=== PATIENT | male | born 1930 | race Caucasian/White ===

== ENCOUNTER → 2016-09-19 12:04 | Day surgery (SDC) | payer MEDICARE, BC ==
[~2016-09-19 12:04] MED LIST: Acetaminophen TAB* 325 MG PO PRN; Albuterol 2.5 MG/3 ML NEB.SOL* (0.083%) ONE; Buffered Lidocaine 1% SYRIN* 3 ML/SYR SYRINGE INTRADERM ONE; Cyclopentolate 1% OPTH.SOL* 2 ML BTL ONE; Flurbiprofen 0.03% OPTH.SOL* 2.5 ML BTL ONE; Lidocaine 1% MPF* 2 ML VIAL ONE; Lidocaine 2% EPI 1:200000 MPF* 20 ML VIAL ONE; Midazolam* 1 MG/ML 2 ML VIAL (2 MG) ONE; Neomycin/Polymy/Dex OPTH.SUSP* MAXITROL 0.1% 5 ML ONE; Phenylephrine 2.5% OPTH.SOL* 2 ML BTL ONE; Povidone Iodine 5% OPTH* 30 ML BTL ONE; Proparacaine 0.5% OPHTH.SOL* 15 ML BTL ONE; acetaZOLAMIDE TAB* 250 MG ONE
[2016-09-19 14:37] VITALS: BP 106/62
--- NOTE | 2016-09-19 16:27 | OP ---
DATE OF OPERATION: 09/19/2016 - [facility] DATE OF : 1930. SURGEON: Ji Ty M.D. PREOPERATIVE DIAGNOSIS: Cataract left eye. POSTOPERATIVE DIAGNOSIS: Cataract left eye. OPERATIVE PROCEDURE: Phacoemulsification left eye with IOL. DESCRIPTION OF PROCEDURE: The patient was brought to the operating room after being given 1/2% Alcaine with epinephrine drops in the preoperative area. The eye was prepped and draped in the usual sterile fashion. Sterile drape and eyelid speculum were placed. Again, topical 1/2% Alcaine with epinephrine was given. A paracentesis incision was made at the 3 o'clock position with the No.75 blade. Clear cornea incision 2.2 x 2.2-mm was created at the 6 o'clock position starting at the anterior limbus using the 2.2-mm keratome. The anterior chamber was irrigated with 0.4 mL of 1% non-preservative intracameral lidocaine and filled with DisCoVisc. A capsulorrhexis was completed using the cystotome and the Utrata forceps. Hydrodissection was performed with balanced salt solution. The lens nucleus was removed with the Phacoemulsification handpiece without incident. Cortex was removed with the irrigation-aspiration handpiece. The capsular bag was re-inflated using DisCoVisc and an [id number] implant was inserted with the shooter. A Malyugin ring was used to dilate the pupil prior to capsulorrhexis and removed after insertion of the lens. The irrigation-aspiration handpiece was used to remove all residual DisCoVisc. The eye was refilled with balanced salt solution and the wound checked and found to be watertight. Topical Maxitrol drops were given. Indication for complex cataract surgery: Iris abnormalities requiring pupil dilation device. [id number]/[facility] #: [id number] [place]
== END | disposition home or self-care (01) ==
LOC: OREAST 12:04
PROVIDERS: ATTEND Specialist
DX: H25.812 Combined forms of age-related cataract, left eye (principal); Q13.2 Other congenital malformations of iris; Z87.891 Personal history of nicotine dependence; J44.9 Chronic obstructive pulmonary disease, unspecified; I10 Essential (primary) hypertension; I48.91 Unspecified atrial fibrillation; G35 Multiple sclerosis; I25.10 Atherosclerotic heart disease of native coronary artery without angina pectoris; Z95.1 Presence of aortocoronary bypass graft
CPT/HCPCS: J2250; V2632

== ENCOUNTER → 2016-09-26 09:21 | Day surgery (SDC) | payer MEDICARE, BC ==
[~2016-09-26 09:21] MED LIST changes: -Albuterol 2.5 MG/3 ML NEB.SOL* (0.083%) ONE
[2016-09-26 13:13] VITALS: BP 114/49
--- NOTE | 2016-09-27 11:37 | OP ---
DATE OF OPERATION: 09/26/16 - [facility] DATE OF : [birth year] SURGEON: Ji Ty M.D. PREOPERATIVE DIAGNOSIS: Cataract, right eye. POSTOPERATIVE DIAGNOSIS: Cataract, right eye. OPERATIVE PROCEDURE: Phacoemulsification, right eye, with IOL. DESCRIPTION OF PROCEDURE: The patient was brought to the operating room after being given 1/2% Alcaine with epinephrine drops in the preoperative area. The eye was prepped and draped in the usual sterile fashion. Sterile drape and eyelid speculum were placed. Again, topical 1/2% Alcaine with epinephrine was given. A paracentesis incision was made at the 9 o'clock position with the No.75 blade. Clear cornea incision 2.2 x 2.2-mm was created at the 12 o'clock position starting at the anterior limbus using the 2.2-mm keratome. The anterior chamber was irrigated with 0.4 mL of 1% non-preservative intracameral lidocaine and filled with DisCoVisc. A capsulorrhexis was completed using the cystotome and the Utrata forceps. Hydrodissection was performed with balanced salt solution. The lens nucleus was removed with the Phacoemulsification handpiece without incident. Cortex was removed with the irrigation-aspiration handpiece. The capsular bag was re-inflated using DisCoVisc and an [id number] implant was inserted with the shooter. The irrigation-aspiration handpiece was used to remove all residual DisCoVisc. The eye was refilled with balanced salt solution and the wound checked and found to be watertight. Topical Maxitrol drops were given. A Malyugin ring was used to dilate the pupil prior to capsulorrhexis. Indication for complex cataract surgery: Iris abnormalities requiring pupil dilation device. [id number]/[facility] #: [id number] [facility]PITALCarl
== END | disposition home or self-care (01) ==
LOC: OREAST 09:21
PROVIDERS: ATTEND Specialist
DX: H25.811 Combined forms of age-related cataract, right eye (principal); Q13.2 Other congenital malformations of iris; Z87.891 Personal history of nicotine dependence; I10 Essential (primary) hypertension; J44.9 Chronic obstructive pulmonary disease, unspecified; I51.7 Cardiomegaly; Z95.1 Presence of aortocoronary bypass graft; N18.9 Chronic kidney disease, unspecified; G89.4 Chronic pain syndrome; Z79.891 Long term (current) use of opiate analgesic
CPT/HCPCS: J2250; V2632

== ENCOUNTER 2017-05-12 08:16 | Emergency (ER) | payer MEDICARE, BC ==
[2017-05-12] MEDS ORDERED: Oxybutynin TAB* 5 MG PO ONE (09:13)
[2017-05-12] MEDS ORDERED: oxyCODONE TAB* 5 MG TAB PO ONE (09:21)
[2017-05-12 09:24] LABS: Hematocrit 32 % (42-52); Hemoglobin 10.6 g/dl (14.0-18.0); Mean Corpuscular HGB Conc 33 g/dl (31-36); Mean Corpuscular Hemoglobin 31 pg (27-31); Mean Corpuscular Volume 94 fL (80-94); Mean Platelet Volume 8 um3 (7.4-10.4); Red Blood Count 3.38 10^6/ul (4.0-5.4); Red Cell Distribution Width 14 % (10.5-15); White Blood Count 8.2 10^3/ul (3.5-10.8)
--- NOTE | 2017-05-12 09:31 | RAD ---
INDICATION: Chest pain COMPARISON: Most recent comparison chest x-rays February 14, 2016 TECHNIQUE: PA and lateral views of the chest were obtained. FINDINGS: Again seen are sternotomy wires and a prostatic valve at the expected location of the aortic valve. Coronary artery stents are noted in the anterior mediastinum perhaps representing stenting of a prior CABG graft. There is mild cardiomegaly similar in appearance to the prior chest x-ray. There is coarse atherosclerotic calcification overlying the arch of the aorta. There is increased patchy density overlying the lateral aspect of the right lung and the mid-level left lung. The pulmonary vasculature is mildly engorged and indistinct relative to the prior chest x-ray. There is costophrenic angle blunting seen on the lateral view chest x-ray. Visualized bones are normal for the patient's age. There is no radiographic evidence of free air beneath the diaphragm IMPRESSION: CHEST X-RAY FINDINGS ARE MOST INDICATIVE OF EXACERBATION OF CONGESTIVE HEART FAILURE WITH WORSENING PULMONARY EDEMA AND SMALL PLEURAL EFFUSIONS.
[2017-05-12 09:40] LABS: Albumin 3.3 g/dL (3.2-5.2); BUN/Creatinine Ratio 38.3 (8-20); C Reactive Protein 5.41 mg/L (< 5.00); Calcium 9.2 mg/dL (8.6-10.3); EGFR African American 84.7 (>60); EGFR Non-African American 65.8 (>60); Globulin 3.7 g/dL (2-4); Magnesium 2.3 mg/dL (1.9-2.7); Potassium 4.1 mmol/L (3.5-5.0); Total Bilirubin 0.5 mg/dL (0.2-1.0)
[2017-05-12 09:41] LABS: Troponin I 0.03 ng/mL (<0.04)
[2017-05-12] MEDS ORDERED: Lidocaine PATCH 5%* 1 PATCH ONE (10:09)
[2017-05-12 10:17] LABS: Urine Bacteria Absent (Absent); Urine Bilirubin Negative (Negative); Urine Glucose Negative (Negative); Urine Nitrite Negative (Negative)
[2017-05-12] MEDS ORDERED: Lidocaine PATCH 5%* 1 PATCH TRANSDERM SCH (11:00)
[2017-05-12 11:03] VITALS: BP 161/70
--- NOTE | 2017-05-12 15:50 | ED ---
Enedina Dixon Abhishek, scribed for Elver Davis MD on 05/12/17 at 0833 . GI/ HPI - HPI Summary HPI Summary: This patient is a 86 year old M BIBA accompanied by female with a chief complaint of hematuria since 0500 today. Patients family member states that patient had right shoulder pain around 0300 today. Patients family reports shoulder pain that has resolved after taking NTG (1) at 0300. Pt uses the following blood thinner(s): Plavix. The patient rates the pain 0/10 in severity. Symptoms aggravated by nothing. Patient reports hip pain. Patient denies abd pain. - History of Current Complaint Chief Complaint: EDGeneral Time Seen by Provider: 05/12/17 08:23 Stated Complaint: BLOOD IN URINE Hx Obtained From: Patient, Family/Indoor Landscaper/Gardener Onset/Duration: Started Hours Ago - 0500, Still Present Current Severity: None Pain Intensity: 0 Associated Signs and Symptoms: Positive: Hematuria, Other: - Hip pain. Negative : Abdominal Pain Aggravating Factor(s): Nothing - Additional Pertinent History Primary Care Physician: [id number] - Allergy/Home Medications Allergies/Adverse Reactions: Allergies Allergy/AdvReac Type Severity Reaction Status Date / Time Propoxyphene [From Darvon] Allergy Severe Difficulty Verified 09/26/16 10:15 Breathing Colchicine Allergy Unknown Unknown Verified 09/26/16 10:15 Reaction Details Levofloxacin [From Levaquin] Allergy Unknown Unknown Verified 09/26/16 10:15 Reaction Details Ramipril Allergy Unknown Unknown Verified 09/26/16 10:15 Reaction Details Chocolate Allergy GI Upset Verified 09/26/16 10:15 Codeine Allergy GI Upset Verified 09/26/16 10:15 PMH/Surg Hx/FS Hx/Imm Hx Endocrine/Hematology History: Reports: Hx Anticoagulant Therapy, Hx Anemia - chronic Denies: Hx Blood Disorders, Hx Blood Transfusions, Hx Bone Marrow Disease, Hx Diabetes, Hx Systemic Lupus Erythematosus, Hx Thyroid Disease, Hx Unexplained Bleeding, Other Endocrine/Hematological Disorders Cardiovascular History: Reports: Hx Aneurysm, Hx Angina, Hx Angioplasty, Hx Cardiac Arrest, Hx Congestive Heart Failure, Hx Coronary Artery Disease - coronary artherosclerosis, Hx Hypercholesterolemia, Hx Hypertension, Hx Valvular Heart Disease - AORTIC STENOSIS Denies: Hx Auto Implanted Cardiovert Defib, Hx Cardiomegaly, Hx Congenital Heart Disease, Hx Deep Vein Thrombosis, Hx Hypotension, Hx Pacemaker/ICD, Hx Peripheral Vascular Disease, Hx Rheumatic Fever, Hx Syncope, Other Cardiovascular Problems/Disorders Respiratory History: Reports: Hx Chronic Bronchitis, Hx Chronic Obstructive Pulmonary Disease (COPD), Hx Pneumonia, Hx Seasonal Allergies, Hx Sleep Apnea - NO LONGER WEARS CPAP, O2 4L routinely, Other Respiratory Problems/Disorders - emphysema Denies: Hx Asthma, Hx Cystic Fibrosis, Hx Lung Cancer, Hx Pleural Effusion, Hx Pulmonary Edema, Hx Pulmonary Embolism GI History: Reports: Other GI Disorders - constipation-takes daily laxative Denies: Hx Cirrhosis, Hx Crohn's Disease, Hx Diverticulosis, Hx Gall Bladder Disease, Hx Gastroesophageal Reflux Disease, Hx Gastrointestinal Bleed, Hx Hiatal Hernia, Hx Irritable Bowel, Hx Jaundice, Hx Obstructive Bowel, Hx Ileostomy, Hx Pyloric Stenosis, Hx Ulcer History: Reports: Hx Kidney Stones, Other Problems/Disorders - BPH - on meds Denies: Hx Acute Renal Failure, Hx Dialysis, Hx Renal Disease Musculoskeletal History: Reports: Hx Arthritis - left hip osteoarthritis, bilat knees, right shoulder, Hx Back Problems, Hx Orthopedic Injury - L hip fx, Other Musculoskeletal History - osteoporosis Denies: Hx Rheumatoid Arthritis, Hx Bursitis, Hx Congenital Bone Abnormalities, Hx Fibromyalgia, Hx Gout, Hx Osteoporosis, Hx Scoliosis, Hx Tendonitis Sensory History: Reports: Hx Cataracts - bilat eyes, Hx Contacts or Glasses, Hx Hearing Aid - bilat, 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 Denies: Other Sensory Impairments Opthamlomology History: Reports: Hx Cataracts - bilat eyes, Hx Contacts or Glasses Denies: Other Sensory Impairments Neurological History: Reports: Other Neuro Impairments/Disorders - MULTIPLE SCLEROSIS Denies: Hx Dementia, Hx Headaches, Hx Seizures Psychiatric History: Reports: Hx Depression Denies: Hx Anxiety, Hx Panic Disorder, Hx Substance Abuse, Other Psychiatric Issues/Disorders - Cancer History Cancer Type, Location and Year: [place] Hx Chemotherapy: No - Surgical History Surgery Procedure, Year, and Place: CABG, cardiac wires in place heart valve january 17 rt hip january 20 2016. RIGHT INGUINAL HERNIA REPAIR. PENILE IMPLANT. LEFT HIP FRACTURE. TURP. 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 CYSTOSCOPY Hx Anesthesia Reactions: No - Immunization History Date of Tetanus Vaccine: ukn Date of Influenza Vaccine: ukn Infectious Disease History: Yes Infectious Disease History: Denies: Hx Hepatitis, Hx Human Immunodeficiency Virus (HIV), Hx Tuberculosis , Traveled Outside the [place] in Last 30 Days - Family History Known Family History: Positive: Cardiac Disease - CAD, Other - CVA - Social History Lives: At [facility] Alcohol Use: None Hx Substance Use: No Substance Use Type: Reports: None Hx Tobacco Use: Yes Smoking Status (MU): Former Smoker Type: Cigarettes Have You Smoked in the Last Year: No Review of Systems Constitutional: Negative Eyes: Negative ENT: Negative Cardiovascular: Negative Respiratory: Negative Negative: Abdominal Pain Positive: hematuria Positive: Other - Hip pain Skin: Negative Neurological: Negative Psychological: Normal All Other Systems Reviewed And Are Negative: Yes Physical Exam - Summary Physical Exam Summary: VITAL SIGNS: Reviewed. GENERAL: ~Patient is a well-developed and nourished (MALE) who is lying comfortable in the stretcher. ~Patient is not in any acute respiratory distress. HEAD AND FACE: No signs of trauma. ~No ecchymosis, hematomas or skull depressions. No sinus tenderness. EYES: PERRLA, EOMI x 2, No injected conjunctiva, no nystagmus. EARS: Hearing grossly intact. Ear canals and tympanic membranes are within normal limits. MOUTH: Oropharynx within normal limits. NECK: Supple, trachea is midline, no adenopathy, no JVD, no carotid bruit, no c- spine tenderness, neck with full ROM. CHEST: Symmetric, no tenderness at palpation LUNGS: lungs with bilateral crackles and gurgling CVS: Regular rate and rhythm, S1 and S2 present, no murmurs or gallops appreciated. ABDOMEN: Soft, non-tender. No signs of distention. No rebound no guarding, and no masses palpated. Bowel sounds are normal. EXTREMITIES: FROM in all major joints, no edema, no cyanosis or clubbing. NEURO: Alert and oriented x 3. No acute neurological deficits. Speech is normal and follows commands. SKIN: Dry and warm Triage Information Reviewed: Yes Vital Signs On Initial Exam: Initial Vitals Temp Pulse Resp BP Pulse Ox 98.3 F 66 14 176/74 96 05/12/17 08:25 05/12/17 08:25 05/12/17 08:25 05/12/17 08:25 05/12/17 08:25 Vital Signs Reviewed: Yes Diagnostics - Vital Signs Vital Signs Temp Pulse Resp BP Pulse Ox 05/12/17 08:25 98.3 F 66 14 176/74 96 - Laboratory Lab Results: Lab Results 05/12/17 05/12/17 05/12/17 Range/Units 09:06 09:06 09:06 WBC 8.2 (3.5-10.8) 10^3/ul RBC 3.38 L (4.0-5.4) 10^6/ul Hgb 10.6 L (14.0-18.0) g/dl Hct 32 L (42-52) % MCV 94 (80-94) fL MCH 31 (27-31) pg MCHC 33 (31-36) g/dl RDW 14 (10.5-15) % Plt Count 258 (150-450) 10^3/ul MPV 8 (7.4-10.4) um3 Neut % (Auto) 59.4 (38-83) % Lymph % (Auto) 25.7 (25-47) % Bowman % (Auto) 11.1 H (1-9) % Eos % (Auto) 3.0 (0-6) % Baso % (Auto) 0.8 (0-2) % Absolute Neuts (auto) 4.9 (1.5-7.7) 10^3/ul Absolute Lymphs (auto) 2.1 (1.0-4.8) 10^3/ul Absolute Monos (auto) 0.9 H (0-0.8) 10^3/ul Absolute Eos (auto) 0.2 (0-0.6) 10^3/ul Absolute Basos (auto) 0.1 (0-0.2) 10^3/ul Absolute Nucleated RBC 0 10^3/ul Nucleated RBC % 0 APTT 35.5 (26.0-36.3) seconds Sodium 136 (133-145) mmol/L Potassium 4.1 (3.5-5.0) mmol/L Chloride 102 (101-111) mmol/L Carbon Dioxide 28 (22-32) mmol/L Anion Gap 6 (2-11) mmol/L BUN 41 H (6-24) mg/dL Creatinine 1.07 (0.67-1.17) mg/dL Est GFR ( Amer) 84.7 (>60) Est GFR (Non-Af Amer) 65.8 (>60) BUN/Creatinine Ratio 38.3 H (8-20) Glucose 102 H (70-100) mg/dL Calcium 9.2 (8.6-10.3) mg/dL Magnesium 2.3 (1.9-2.7) mg/dL Total Bilirubin 0.50 (0.2-1.0) mg/dL AST 17 (13-39) U/L ALT 11 (7-52) U/L Alkaline Phosphatase 74 (34-104) U/L Total Creatine Kinase 41 (10-223) U/L Troponin I 0.03 (<0.04) ng/mL C-Reactive Protein 5.41 H (< 5.00) mg/L B-Natriuretic Peptide ( - 100) pg/mL Total Protein 7.0 (6.4-8.9) g/dL Albumin 3.3 (3.2-5.2) g/dL Globulin 3.7 (2-4) g/dL Albumin/Globulin Ratio 0.9 L (1-3) Amylase 38 (29-103) U/L Lipase 13 (11.0-82.0) U/L Urine Color Urine Appearance Urine pH (5-9) Ur Specific [place] (1.010-1.030) Urine Protein (Negative) Urine Ketones (Negative) Urine Blood (Negative) Urine Nitrate (Negative) Urine Bilirubin (Negative) Urine Urobilinogen (Negative) Ur Leukocyte Esterase (Negative) Urine WBC (Auto) (Absent) Urine RBC (Auto) (Absent) Urine Bacteria (Absent) Urine Glucose (Negative) 05/12/17 05/12/17 Range/Units 09:06 10:03 WBC (3.5-10.8) 10^3/ul RBC (4.0-5.4) 10^6/ul Hgb (14.0-18.0) g/dl Hct (42-52) % MCV (80-94) fL MCH (27-31) pg MCHC (31-36) g/dl RDW (10.5-15) % Plt Count (150-450) 10^3/ul MPV (7.4-10.4) um3 Neut % (Auto) (38-83) % Lymph % (Auto) (25-47) % Bowman % (Auto) (1-9) % Eos % (Auto) (0-6) % Baso % (Auto) (0-2) % Absolute Neuts (auto) (1.5-7.7) 10^3/ul Absolute Lymphs (auto) (1.0-4.8) 10^3/ul Absolute Monos (auto) (0-0.8) 10^3/ul Absolute Eos (auto) (0-0.6) 10^3/ul Absolute Basos (auto) (0-0.2) 10^3/ul Absolute Nucleated RBC 10^3/ul Nucleated RBC % APTT (26.0-36.3) seconds Sodium (133-145) mmol/L Potassium (3.5-5.0) mmol/L Chloride (101-111) mmol/L Carbon Dioxide (22-32) mmol/L Anion Gap (2-11) mmol/L BUN (6-24) mg/dL Creatinine (0.67-1.17) mg/dL Est GFR ( Amer) (>60) Est GFR (Non-Af Amer) (>60) BUN/Creatinine Ratio (8-20) Glucose (70-100) mg/dL Calcium (8.6-10.3) mg/dL Magnesium (1.9-2.7) mg/dL Total Bilirubin (0.2-1.0) mg/dL AST (13-39) U/L ALT (7-52) U/L Alkaline Phosphatase (34-104) U/L Total Creatine Kinase (10-223) U/L Troponin I (<0.04) ng/mL C-Reactive Protein (< 5.00) mg/L B-Natriuretic Peptide 287 H ( - 100) pg/mL Total Protein (6.4-8.9) g/dL Albumin (3.2-5.2) g/dL Globulin (2-4) g/dL Albumin/Globulin Ratio (1-3) Amylase (29-103) U/L Lipase (11.0-82.0) U/L Urine Color Red A Urine Appearance Cloudy Urine pH 9.0 (5-9) Ur Specific [place] 1.015 (1.010-1.030) Urine Protein 2+(100 mg/dl) H (Negative) Urine Ketones Negative (Negative) Urine Blood 2+ H (Negative) Urine Nitrate Negative (Negative) Urine Bilirubin Negative (Negative) Urine Urobilinogen Negative (Negative) Ur Leukocyte Esterase 1+ H (Negative) Urine WBC (Auto) 2+(11-20/hpf) H (Absent) Urine RBC (Auto) 3+(>10/hpf) H (Absent) Urine Bacteria Absent (Absent) Urine Glucose Negative (Negative) Result Diagrams: 05/12/17 09:06 05/12/17 09:06 Lab Statement: Any lab studies that have been ordered have been reviewed, and results considered in the medical decision making process. - Radiology Chest X-ray Radiology Interpretation Completed By: Radiologist - CHEST X-RAY FINDINGS ARE MOST INDICATIVE OF EXACERBATION OF CONGESTIVE HEART FAILURE WITH WORSENING PULMONARY EDEMA AND SMALL PLEURAL EFFUSIONS. ED physician has reviewed this radiology report and agrees. - EKG 0835 EKG Interpretation: 0835: Reveals sinus rhythm, 60 bpm with LBBB and similar EKG to 02/13/16 GIGU Course/Dx - Course Assessment/Plan: In the ED course an IV access was obtained. Patient was placed in a cardiac care unit nurse. Patient right shoulder pain was relieved by NTG. He is asymptomatic now. He is c / o hematuria and he is taking Eliquis. No flank pain or abdominal pain. Denies any urinary tract infection symptoms. He was given Oxycodone and lidoderm patch for his chronic hip pain. Labs without any significant abnormality except for a chronic normocytic normochromic anemia. BUN 41 and BNP 287. Troponin #1: 0.00. EKG shows a NSR at w/o ST elevations. CXR impression: No acute pathology. Discussed the case with Jhonatan and recommends to stop Eliquis for 5-6 days and discharge home with f/u at his office tomorrow. He does not recommend U/S, abdominal or pelvic CT or Cystoscopy. I discussed all the findings and test results with the patient. Patient was instructed to return to the emergency room immediately if any of the symptoms return or worsens. Plan of care was discussed with the patient and understands and agrees. All questions were answered at patient satisfaction. There were no further complaints or concerns. - Diagnoses Differential Diagnoses - Male: Other - UTI, Cystitis, BPH, PKD, glomerulonepritis, Kidney stone Provider Diagnoses: Hematuria, Shoulder pain - Physician Notifications Discussed Care Of Patient With: John Israel Time Discussed With Above Provider: 10:43 Instructed by Provider To: Other - Urologist recommends to discharge with Plavix for 6 days Follow up with PCP as needed. Discharge - Discharge Plan Condition: Stable Disposition: HOME Patient Education Materials: Hematuria (ED), Arthralgia (ED) Referrals: Tony Pandey MD [Medical Doctor] - Additional Instructions: As per Dr. Israel: he recommends to stop taking Eliquis for 5 - 6 days. He should f/u with Dr. Israel tomorrow If hematuria worsens return to the ED for further assessment. The documentation as recorded by the Enedina nur Abhishek accurately reflects the service I personally performed and the decisions made by me, Elver Davis MD.
[2017-05-12] MEDS ORDERED: Lidocaine Patch REMOVE* 1 NOTE MISC PATCH OFF SCH (21:00)
== END 2017-05-12 12:44 | disposition home or self-care (01) ==
LOC: ED 08:16
DX: R31.9 Hematuria, unspecified (principal); M25.511 Pain in right shoulder; Z87.891 Personal history of nicotine dependence
CPT/HCPCS: 36415; 71020; 80053; 81003; 81015; 82150; 82550; 83690; 83735; 83880; 84484; 85025; 85730; 86140; 87086; 93005; 99283; A9270-GY

== ENCOUNTER 2019-03-17 12:43 | Emergency (ER) | payer MEDICARE, OTHER ==
[2019-03-17] MEDS ORDERED: Dexamethasone IV* 4 MG/ML 1 ML (4 MG) IV SLOW PU ONE (13:02)
--- NOTE | 2019-03-17 13:04 | ED ---
Shortness of Breath - HPI Summary HPI Summary: This patient is an 88-year-old male from [facility] with a history of pneumonia, hypertension and COPD presenting to the ED with a 4 day worsening shortness of breath. He is typically on 4-5L O2 at the long-term. X-ray was obtained at [facility] which was read as a PNA. He was sent here for further evaluation. Endorses mild cough with congestion. Denies any bilateral leg swelling. Denies any fevers, sweats or chills. Pt was dx with PNA last month and given levaquin. He denies any other complaints or symptoms. States he feels at his baseline other than slightly SOB. Denies CP. - History of Current Complaint Chief Complaint: EDShortnessOfBreath Time Seen by Provider: 03/17/19 12:56 Hx Obtained From: Patient Onset/Duration: Gradual Onset Timing: Constant Current Severity: Moderate Dyspnea At: Rest Associated Signs & Symptoms: Cough (Productive) - Risk Factors Pulmonary Embolism: Negative Cardiac: Negative Pseudomonas: Negative Tuberculosis: Negative - Allergy/Home Medications Allergies/Adverse Reactions: Allergies Allergy/AdvReac Type Severity Reaction Status Date / Time bee venom protein (honey bee) Allergy Hives/Diff. Verified 03/17/19 13:19 Breathing/I tching chocolate flavor Allergy GI Upset Verified 03/17/19 13:19 codeine Allergy Unknown Verified 03/17/19 13:19 Reaction Details colchicine Allergy Unknown Verified 03/17/19 13:19 Reaction Details levofloxacin Allergy Unknown Verified 03/17/19 13:19 Reaction Details propoxyphene Allergy Difficulty Verified 03/17/19 13:19 Breathing ramipril Allergy Unknown Verified 03/17/19 13:19 Reaction Details Home Medications: Home Medications Albuterol Sulfate 1.25 mg INH Q4HR PRN 03/17/19 [History Confirmed 03/17/19] Anbesol Maximum Strength Gel 20% 1 applic TOPICAL BID 03/17/19 [History Confirmed 03/17/19] Fluticasone/Vilanterol MDI(NF) [Breo Ellipta MDI (NF)] 1 puff INH DAILY [History Confirmed 03/17/19] Glycerin ADULT SUPP* 1 supp NH DAILY PRN 03/17/19 [History Confirmed 03/17/19] Ipratropium 0.5MG/2.5ML NEB* [Atrovent 0.5 MG NEB.REKHA*] 0.5 mg INH TID 03/17/19 [History Confirmed 03/17/19] Magic Paste 1 applic TOPICAL TID 03/17/19 [History Confirmed 03/17/19] Magnesium Hydroxide LIQ* [Milk of Magnesia LIQ*] 30 ml PO .Q72H PRN 03/17/19 [ History Confirmed 03/17/19] Simethicone TAB* [Mylicon TAB*] 80 mg PO TID PRN 03/17/19 [History Confirmed ] Sodium Phosphate ADULT ENEMA* [Fleet Enema*] 1 enema NH DAILY PRN 03/17/19 [ History Confirmed 03/17/19] guaiFENesin LIQ* [Robitussin*] 10 ml PO Q4H PRN 03/17/19 [History Confirmed ] PMH/Surg Hx/FS Hx/Imm Hx Previously Healthy: Yes Endocrine/Hematology History: Reports: Hx Anticoagulant Therapy, Hx Anemia - chronic Denies: Hx Blood Disorders, Hx Blood Transfusions, Hx Bone Marrow Disease, Hx Diabetes, Hx Systemic Lupus Erythematosus, Hx Thyroid Disease, Hx Unexplained Bleeding, Other Endocrine/Hematological Disorders Cardiovascular History: Reports: Hx Aneurysm, Hx Angina, Hx Angioplasty, Hx Cardiac Arrest, Hx Congestive Heart Failure, Hx Coronary Artery Disease - coronary artherosclerosis, Hx Hypercholesterolemia, Hx Hypertension, Hx Valvular Heart Disease - AORTIC STENOSIS Denies: Hx Auto Implanted Cardiovert Defib, Hx Cardiomegaly, Hx Congenital Heart Disease, Hx Deep Vein Thrombosis, Hx Hypotension, Hx Pacemaker/ICD, Hx Peripheral Vascular Disease, Hx Rheumatic Fever, Hx Syncope, Other Cardiovascular Problems/Disorders Respiratory History: Reports: Hx Chronic Bronchitis, Hx Chronic Obstructive Pulmonary Disease (COPD), Hx Pneumonia, Hx Seasonal Allergies, Hx Sleep Apnea - NO LONGER WEARS CPAP, O2 4L routinely, Other Respiratory Problems/Disorders - emphysema Denies: Hx Asthma, Hx Cystic Fibrosis, Hx Lung Cancer, Hx Pleural Effusion, Hx Pulmonary Edema, Hx Pulmonary Embolism GI History: Reports: Other GI Disorders - constipation-takes daily laxative Denies: Hx Cirrhosis, Hx Crohn's Disease, Hx Diverticulosis, Hx Gall Bladder Disease, Hx Gastroesophageal Reflux Disease, Hx Gastrointestinal Bleed, Hx Hiatal Hernia, Hx Irritable Bowel, Hx Jaundice, Hx Obstructive Bowel, Hx Ileostomy, Hx Pyloric Stenosis, Hx Ulcer History: Reports: Hx Kidney Stones, Other Problems/Disorders - BPH - on meds Denies: Hx Acute Renal Failure, Hx Dialysis, Hx Renal Disease Musculoskeletal History: Reports: Hx Arthritis - left hip osteoarthritis, bilat knees, right shoulder, Hx Back Problems, Hx Orthopedic Injury - L hip fx, Other Musculoskeletal History - osteoporosis Denies: Hx Rheumatoid Arthritis, Hx Bursitis, Hx Congenital Bone Abnormalities, Hx Fibromyalgia, Hx Gout, Hx Osteoporosis, Hx Scoliosis, Hx Tendonitis Sensory History: Reports: Hx Cataracts - bilat eyes, Hx Contacts or Glasses, Hx Hearing Aid - bilat, 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 Denies: Other Sensory Impairments Opthamlomology History: Reports: Hx Cataracts - bilat eyes, Hx Contacts or Glasses Denies: Other Sensory Impairments Neurological History: Reports: Other Neuro Impairments/Disorders - MULTIPLE SCLEROSIS Denies: Hx Dementia, Hx Headaches, Hx Seizures Psychiatric History: Reports: Hx Depression Denies: Hx Anxiety, Hx Panic Disorder, Hx Substance Abuse, Other Psychiatric Issues/Disorders - Cancer History Cancer Type, Location and Year: [place] Hx Chemotherapy: No - Surgical History Surgery Procedure, Year, and Place: CABG, cardiac wires in place heart valve january 17 rt hip january 20 2016. RIGHT INGUINAL HERNIA REPAIR. PENILE IMPLANT. LEFT HIP FRACTURE. TURP. 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 CYSTOSCOPY Hx Anesthesia Reactions: No - Immunization History Date of Tetanus Vaccine: ukn Date of Influenza Vaccine: ukn Hx Pertussis Vaccination: No Immunizations Up to Date: Yes Infectious Disease History: No Infectious Disease History: Denies: Hx Hepatitis, Hx Human Immunodeficiency Virus (HIV), Hx Tuberculosis , Traveled Outside the [place] in Last 30 Days - Family History Known Family History: Positive: None, Cardiac Disease - CAD, Other - CVA - Social History Occupation: Unemployed [facility]: [facility] Alcohol Use: None Hx Substance Use: No Substance Use Type: Reports: None Hx Tobacco Use: Yes Smoking Status (MU): Former Smoker Type: Cigarettes Have You Smoked in the Last Year: No Review of Systems Negative: Fever, Chills, Fatigue, Skin Diaphoresis Negative: Palpitations, Chest Pain Positive: Shortness Of Breath, Cough Positive: no symptoms reported, see HPI Negative: Arthralgia, Myalgia Skin: Negative Neurological: Negative All Other Systems Reviewed And Are Negative: Yes Physical Exam Triage Information Reviewed: Yes Vital Signs On Initial Exam: Initial Vitals Temp Pulse Resp BP Pulse Ox 98 F 72 16 108/52 91 03/17/19 12:50 03/17/19 12:50 03/17/19 12:50 03/17/19 12:50 03/17/19 12:50 Vital Signs Reviewed: Yes Appearance: Positive: Well-Appearing, Well-Nourished Skin: Positive: Warm, Skin Color Reflects Adequate Perfusion Head/Face: Positive: Normal Head/Face Inspection Eyes: Positive: EOMI, SHAWN, Conjunctiva Clear Neck: Positive: Supple, No Lymphadenopathy Respiratory/Lung Sounds: Positive: Rhonchi - Rt Cardiovascular: Positive: RRR, Pulses are Symmetrical in both Upper and Lower Extremities Musculoskeletal: Positive: Normal, Strength/ROM Intact Neurological: Positive: Sensory/Motor Intact, Alert, Oriented to Person Place, Time Psychiatric: Positive: Affect/Mood Appropriate Diagnostics - Vital Signs Vital Signs Temp Pulse Resp BP Pulse Ox 03/17/19 12:50 98 F 72 16 108/52 91 - Laboratory Result Diagrams: 03/17/19 13:54 03/17/19 13:54 Lab Statement: Any lab studies that have been ordered have been reviewed, and results considered in the medical decision making process. Course/Dx - Course Course Of Treatment: This patient was sent in by [facility] to be evaluated for a diagnosed PNA on x-ray. He states he has been having shortness of breath. He does have a history of COPD and recent PNA last month. He remains on 4-5 L O2 at baseline and states he has not needed more than this. On arrival into the ED, patient is 91% on 4 L and was placed on 5 L and began to sat at 96%. Afebrile at 98.0, heart rate 72, respirations 16, BP 108/52. On physical examination, patient appears well and appears to be in no acute distress. Lungs with mild rhonchi in R lung without wheezing sounds or decreased breath sounds. RRR. Patient alert and oriented. Labs were obtained which were fairly unremarkable. BNP 422 which is consistent and at his baseline. CXR equals interstitial mild pulmonary edema with no evidence of a PNA. Discussed findings with patient and daughter at bedside. As patient's vital signs remain stable with no requirement of an increase in O2 sat, patient is safe for discharge home back to [facility]. Due to his cough, congestion and recent SOB with high risk (long-term, age), he will be placed on Levaquin x 5 days. First dose given here in ED. - Diagnoses Differential Diagnosis/HQI/PQRI: Positive: Bronchitis, Pneumonia, Pulmonary Edema, Other - COPD, SOB, viral illness Provider Diagnoses: Pulmonary edema Discharge ED - Sign-Out/Discharge Documenting (check all that apply): Patient Departure Patient Received Moderate/Deep Sedation with Procedure: No - Discharge Plan Condition: Stable Disposition: HOME Prescriptions: Levofloxacin TAB* [Levaquin TAB*] 500 mg PO DAILY #4 tab Referrals: No Primary Care Phys,NOPCP [Primary Care Provider] - Additional Instructions: Please follow up with PCP and size worker as scheduled Levaquin 4 days, start this medication tomorrow - Billing Disposition and Condition Condition: STABLE Disposition: Home - Attestation Statements Provider Attestation: I was available for consult. This patient was seen by the [facility]. The patient was not presented to, seen by, or examined by me. Lawrence Bailon MD
--- OUTSIDE RECORDS SUMMARY | 2019-03-17 13:08 | XMS REPORT | Continuity of Care Document ---
:1930 External Reference #:[id number] Author Name TaliaKarlya Care Team Providers Name Role Phone Patient's Choice Primary Care Physician Unavailable Payers Date Identification Numbers Payment Provider Subscriber Policy Number: [id number] Medicare [employer] Name: Medicare [address] PayID: [id number] [place] [address] Policy Number: [id number] [facility] Marion Pope PayID: [id number] [address] [place] [address] Problems Active Problems Provider Date Congestive heart failure Dat Lu M.D. Onset: 07/03/2013 Aortic valve disorder Dat Lu M.D. Onset: 07/03/2013 Coronary arteriosclerosis Dat Lu M.D. Onset: 07/03/2013 Family History Date Family Member(s) Observation Comments General Coronary Artery Disease (CAD) General Stroke General Multiple Sclerosis (MS) Social History Type Date Description Comments Sex Unknown Marital Status Lives With Occupation Retired Tobacco Use Start: Unknown Former Cigarette quit 1993 End: Unknown Smoker Smoking Status Reviewed: 01/21/19 Former Cigarette quit 1993 Smoker ETOH Use Denies alcohol use Tobacco Use Start: Unknown Patient is a former smoked cigarettes a End: Unknown smoker pack a day for 50 years, quit in 1993 Recreational Drug Use Never Used Drugs Exercise Type/Frequency Does not exercise Allergies, Adverse Reactions, Alerts Active Allergies Reaction Severity Comments Date Darvon 07/20/2011 Codeine Nausea and Vomiting 07/20/2011 Chocolate sick/bloating bloating 07/03/2013 Levaquin unknown 02/25/2014 Bee Sting Anaphylaxis Severe 02/25/2014 Medications Active Medications SIG Qnty Indications Ordering Date Provider Finasteride 1 by mouth every Unknown 5mg Tablets day Breo Ellipta 1 puff inhaled Unknown daily 100-25mcg/Inh Aerosol Proair HFA 2 puffs by mouth Unknown 108(90Base) every 4 hours as mcg/Act Aerosol needed Guaifenesin take 10ml by mouth Unknown 100mg/5ML every 4 hours as Syrup needed Acetaminophen 2 tablets by mouth Unknown 325mg every 4 hours as Tablets needed for pain/fever Oxycontin 1 tablet po every Unknown 10mg Tab ER 12 hr 12H Abuse-Det Oxycodone HCL 1 tablet po q4 hrs Tony Pandey, 5mg as needed MD Tablets Metoprolol Tartrate 1 tab by mouth Unknown twice a day 25mg Tablets Alfuzosin HCL ER 1 by mouth every Unknown 10mg day Tablets ER 24HR Multi Vitamin Daily one q day Unknown Tablets Nitro-Dur place in in the Unknown 0.6mg/HR morning x 12 hours Patches 24HR and remove at night Losartan Potassium 1 by mouth every Unknown 25mg day Tablets Albuterol Sulfate three times a day Unknown and every 4 hours as needed Sertraline HCL 1 po qd prn 30tabs Unknown 50mg Tablets Miralax qd Unknown Oxygen 4 liters 1units Unknown Misc continuously Lasix 1 tab po qam Unknown 40mg Tablets Tamsulosin HCL 1 po qd 90caps Unknown 0.4mg Capsules Nitrostat one sl q5min up to 50tabs Unknown 0.4mg Tablets 3 doses prn Sub Lipitor 1 po qhs 90tabs Unknown 80mg Tablets History Medications Sulfamethoxazole/Trimethoprim po bid 14units Unknown - 800-160mg/20ML 04/26/2015 Suspension Metoprolol Succinate ER 1 1/2 tab po Unknown - 50mg Tablets ER 24HR bid 06/29/2016 Pantoprazole Sodium 1 po qd 90tabs Unknown - 40mg Tablets DR 06/28/2016 Spironolactone 1/2 tab po qd 30tabs Unknown - 25mg Tablets 06/28/2016 Losartan Potassium 1 by mouth Unknown - 50mg Tablets every day 06/29/2016 Ondansetron HCL one tablet by 30tabs Unknown - 8mg Tablets mouth every 8 06/28/2016 hrs. Metoprolol Succinate ER 1 by mouth Unknown - 25mg Tablets ER 24HR every 12 06/29/2016 hours Eliquis 5mg 1 by mouth Unknown - Tablets twice a day 05/26/2017 Tylenol 325mg take two Unknown - Capsules tablets by 11/07/2016 mouth four times a day as needed Finasteride 5mg 1 tablet po Dannie, - Tablets daily MD Tony 11/07/2016 Doxycycline Hyclate 1 tablet po Unknown - 100mg Capsules twice daily x 11/07/2016 10 days ( take until 10/26/16) Augmentin 1 tablet by Unknown - 875-125mg Tablets mouth q12 01/22/2018 hours for 7 days Prochlorperazine Maleate po tid prn 10tabs Unknown - 5mg Tablets 06/25/2013 Plavix 75mg 1 po qd 90tabs Unknown - Tablets 06/28/2016 Oxycontin 40mg 1 po bid 20tabs Unknown - Tablets ER 12HR 06/28/2016 Metoprolol Succinate ER 1 po qd 90tabs Unknown - 50mg Tablets ER 24HR 06/26/2013 Meclizine HCL 1 po tid prn 60tabs Unknown - 25mg Tablets 06/28/2016 Losartan Potassium 1 po qd 90tabs Unknown - 100mg Tablets 02/23/2014 Lasix 20mg 1 po qd 90tabs Unknown - Tablets 06/25/2013 Hydrocodone Unknown - Bitartrate/Acetaminophen 07/17/2017 10-300mg Tablets Avodart 0.5mg 1 po qd 90caps Unknown - Capsules 07/17/2017 Aspir-81 81mg 1 po qd 100tabs Unknown - Tablets DR 05/26/2017 Amoxicillin/Potassium Clavulanate 1 po bid 20tabs Unknown - 500-125mg Tablets 07/01/2013 Advair Diskus 1 puff po bid 1units Unknown - 250-50mcg/Dose Aerosol Unknown Vital Signs Date Vital Result Comment 01/21/2019 10:07am Height 68 inches 5'8" Weight 186.00 lb per pt Heart Rate 60 /min BP Systolic Sitting 84 mmHg Lue reg cuff BP Diastolic Sitting 60 mmHg Lue reg cuff Respiratory Rate 18 /min BMI (Body Mass Index) 28.3 kg/m2 Ejection Fraction 45-50% Echo 11/08/16 01/24/2018 11:32am Heart Rate 64 /min BP Systolic Sitting 94 mmHg Lue reg cuff BP Diastolic Sitting 52 mmHg Lue reg cuff Respiratory Rate 16 /min Ejection Fraction 45-50% 11/08/16 08/13/2017 12:00pm Heart Rate 78 /min BP Systolic Sitting 118 mmHg BP Diastolic Sitting 70 mmHg Respiratory Rate 18 /min Body Temperature 98.1 F 07/19/2017 10:46am Height 68 inches 5'8" Weight 171.00 lb per patient [facility] Heart Rate 62 /min BP Systolic Sitting 90 mmHg Rue reg cuff BP Diastolic Sitting 52 mmHg Rue reg cuff Respiratory Rate 16 /min BMI (Body Mass Index) 26.0 kg/m2 Ejection Fraction 40-45% date 11/08/16 ECHO 05/27/2017 11:36am Height 68 inches 5'8" Weight 170.00 lb per statement Heart Rate 66 /min BP Systolic Sitting 100 mmHg rue reg cuff BP Diastolic Sitting 60 mmHg rue reg cuff BP Systolic Standing 104 mmHg lue reg cuff BP Diastolic Standing 54 mmHg lue reg cuff Respiratory Rate 22 /min on 4 L/min O2 BMI (Body Mass Index) 25.8 kg/m2 Ejection Fraction 45-50% echo 11/08/16 11/08/2016 11:15am Weight 177.50 lb with shoes Heart Rate 64 /min BP Systolic Sitting 84 mmHg Lue reg cuff BP Diastolic Sitting 50 mmHg Lue reg cuff BP Systolic Standing 82 mmHg Rue reg cuff Sit BP Diastolic Standing 50 mmHg Rue reg cuff Sit Ejection Fraction 30-35% date 01/11/16 ECHO 06/29/2016 10:27am Weight 173.00 lb At facility BP Systolic Sitting 74 mmHg Rue reg cuff BP Diastolic Sitting 50 mmHg Rue reg cuff 05/26/2015 11:22am Height 64.5 inches 5'4.50" Weight 170.00 lb w/ shoes Heart Rate 60 /min reg BP Systolic Sitting 110 mmHg Rue, reg cuff BP Diastolic Sitting 70 mmHg Rue, reg cuff BP Systolic Standing 104 mmHg Rue BP Diastolic Standing 72 mmHg Rue Respiratory Rate 14 /min BMI (Body Mass Index) 28.7 kg/m2 Ejection Fraction 40-45% as of 12/27/14 echo 08/26/2014 1:32pm Weight 183.00 lb Heart Rate 60 /min BP Systolic Sitting 108 mmHg LA reg cuff BP Diastolic Sitting 54 mmHg LA reg cuff BP Systolic Standing 92 mmHg LA BP Diastolic Standing 48 mmHg LA Respiratory Rate 18 /min 02/25/2014 12:20pm Height 64.5 inches 5'4.50" Weight 190.31 lb with shoes Heart Rate 62 /min BP Systolic Sitting 128 mmHg LA, reg cuff BP Diastolic Sitting 72 mmHg LA, reg cuff BP Systolic Standing 122 mmHg LA BP Diastolic Standing 66 mmHg LA Respiratory Rate 16 /min BMI (Body Mass Index) 32.2 kg/m2 07/03/2013 11:37am Height 64.5 inches 5'4.50" Weight 196.00 lb Heart Rate 64 /min BP Systolic Sitting 108 mmHg LA reg cuff BP Diastolic Sitting 54 mmHg LA reg cuff BP Systolic Standing 104 mmHg LA BP Diastolic Standing 52 mmHg LA Respiratory Rate 16 /min BMI (Body Mass Index) 33.1 kg/m2 Procedures Date Code Description Status 01/21/2019 57085 EKG Tracing & Interpretation Completed 01/24/2018 23976 EKG Tracing & Interpretation Completed 05/27/2017 24753 EKG Tracing & Interpretation Completed 05/27/2017 60424 EKG Tracing & Interpretation Completed 11/08/2016 54207 ECHO Transthoracic, Real-Time 2D With Doppler And Color Completed Flow 06/29/2016 79511 EKG Tracing & Interpretation Completed 01/13/2016 32432 EKG, Interpretation Only Completed 01/11/2016 09299 ECHO Transthorasic Realtime 2D W Doppler & Color Flow Hosp Completed 12/27/2014 83365 ECHO Transthorasic Realtime 2D W Doppler & Color Flow Hosp Completed 07/03/2013 27012 EKG Tracing & Interpretation Completed 04/01/2013 72067 ECHO Transthorasic Realtime 2D W Doppler & Color Flow Hosp Completed 01/01/2013 50407 EKG Tracing & Interpretation Completed 10/20/2011 06652 EKG, Interpretation Only Completed 12/07/2010 23631 EKG, Interpretation Only Completed 12/07/2010 67817 Ptca Single Vessel Completed Encounters Type Date Location Provider Dx Diagnosis Office Visit 01/24/2018 [facility] Dat Todd I35.0 Nonrheumatic aortic 11:30a Of Eliz Lu M.D. (valve) stenosis R94.31 Abnormal electrocardiogram [ECG] [EKG] Z95.2 Presence of prosthetic heart valve I25.810 Atherosclerosis of CABG w/o angina pectoris Office Visit 08/13/2017 11:30a [facility] Bruce Kang K42.9 [facility] Of Elzi Swanson M.D. without obstruction or gangrene Office Visit 07/19/2017 11:30a [facility] Dat Todd I35.0 Nonrheumatic Of Eliz Lu M.D. aortic (valve) stenosis Z95.2 Presence of prosthetic heart valve R94.31 Abnormal electrocardiogram [ECG] [EKG] I25.810 Atherosclerosis of CABG w/o angina pectoris K42.9 Umbilical hernia without obstruction or gangrene Office Visit 11/08/2016 11:45a [facility] Dat Todd I35.0 Nonrheumatic Of Eliz Lu M.D. aortic (valve) stenosis I25.810 Atherosclerosis of CABG w/o angina pectoris Z95.2 Presence of prosthetic heart valve Office Visit 06/29/2016 10:45a [facility] Dat Todd I35.0 Nonrheumatic Of Eliz Lu M.D. aortic (valve) stenosis I25.810 Atherosclerosis of CABG w/o angina pectoris Z95.2 Presence of prosthetic heart valve I48.2 Chronic atrial fibrillation Office Visit 01/13/2016 3:49p [facility] Jaylon Henley I35.0 Nonrheumatic Of Eliz Reed DO aortic (valve) FACC stenosis I25.810 Atherosclerosis of CABG w/o angina pectoris Office Visit 01/11/2016 [facility] S72.21xA Displaced 2:12p Services Of Donte Greenberg subtrochanteric C.M.A. fracture of right femur, init S72.141A Displaced intertrochanteric fracture of right femur, init Office Visit 01/11/2016 [facility] Jaylon Henley Z01.810 Encounter for 1:44p Cardiology Of Derek, preprocedural [facility] cardiovascular examination S72.001D Fx unsp part of nk of r femr, subs for clos fx w routn heal I35.0 Nonrheumatic aortic (valve) stenosis I25.10 Athscl heart disease of [place] coronary artery w/o ang pctrs Office Visit 05/26/2015 12:00p [facility] Dat Todd I35.0 Nonrheumatic Of Eliz uL M.D. aortic (valve) stenosis I25.10 Athscl heart disease of [place] coronary artery w/o ang pctrs R06.02 Shortness of breath Office Visit 12/30/2014 3:54p [facility] Rhonda Barcenas, 413.9 Angina Pectoris Of Eliz Kent Other Unspec 424.1 Aortic Valve Disorder 414.9 Ischemic Heart Disease Chronic Unspec Office Visit 08/26/2014 1:45p [facility] Dat Todd 428.0 Congestive Heart Of Eliz Lu M.D. Failure Unspecified 424.1 Aortic Valve Disorder 414.00 Coronary Atherosclerosis Unspec Type Vessel [place]/Graft Office Visit 02/25/2014 12:30p [facility] Dat Todd 428.0 Congestive Heart Of Eliz Lu M.D. Failure Unspecified 424.1 Aortic Valve Disorder 414.00 Coronary Atherosclerosis Unspec Type Vessel [place]/Graft Office Visit 10/22/2013 3:15p [facility] Brenden Ramires, 481 Pneumonia Assoc,pc Donte Pneumococcal Hospitalists 995.91 Sepsis 414.02 Coronary Atherosclerosis Autologous Vein Bypass Graft 492.8 Emphysema Other Office Visit 07/03/2013 11:15a [facility] Dat Todd 428.0 Congestive Heart Of Eliz Lu M.D. Failure Unspecified 424.1 Aortic Valve Disorder 414.00 Coronary Atherosclerosis Unspec Type Vessel [place]/Graft Office Visit 01/01/2013 1:00p [facility] Dat Todd 414.9 Ischemic Heart Of Eliz Lu M.D. Disease Chronic Unspec 424.1 Aortic Valve Disorder Office Visit 06/18/2012 1:27p [facility], 340 Multiple Assoc,pc N.P. Sclerosis Hospitalists 780.79 Malaise And Fatigue Other 491.20 Bronchitis Obstructive Chronic W/O Acute Exacerbation 414.00 Coronary Atherosclerosis Unspec Type Vessel [place]/Graft Office Visit 04/24/2012 1:45p [facility] Dat Todd 424.1 Aortic Valve Of Eliz Lu M.D. Disorder 414.9 Ischemic Heart Disease Chronic Unspec 414.02 Coronary Atherosclerosis Autologous Vein Bypass Graft Office Visit 07/20/2011 [facility] Miguel Angel Boyce, 726.10 Bursae & Tendon 10:30a of Eliz Kent Disorders Shoulder Region Unspec Office Visit 12/07/2010 [facility] Jazmine 410.71 Myocardial Infarc 2:05p Vee Greer Acute Subendocardial Initial Episode Care 414.01 Coronary Atherosclerosis [place] 414.02 Coronary Atherosclerosis Autologous Vein Bypass Graft Plan of Treatment 01/21/2019 - Dat Lu M.D.I35.0 Nonrheumatic aortic (valve) stenosisFollow up:1 yearR94.31 Abnormal electrocardiogram [ECG] [EKG]Z95.2 Presence of prosthetic heart agssoZ84.810 Atherosclerosis of coronary artery bypass graft(s) without angina pectoris
[2019-03-17] MEDS ORDERED: Albuterol/Ipratropium NEB.SOL* Albuterol 2.5 MG/Ipratropium 0.5 MG 3 ML INH ONE (13:47)
[2019-03-17 14:07] LABS: ABS Eosinophils 0.1 10^3/ul (0-0.6); ABS Lymphocytes 1.5 10^3/ul (1.0-4.8); ABS Monocytes 0.8 10^3/ul (0-0.8); ABS Neutrophils 4.7 10^3/ul (1.5-7.7); Eosinophil % 1.6 %; Hematocrit 32 % (42-52); Lymphocyte % 20.4 %; Mean Corpuscular HGB Conc 35 g/dL (31-36); Mean Corpuscular Hemoglobin 33 pg (27-31); Mean Corpuscular Volume 95 fL (80-94); Platelet Count 234 10^3/uL (150-450); Red Blood Count 3.37 10^6 /uL (4.18-5.48); Red Cell Distribution Width 14 % (10-15); White Blood Count 7.1 10^3/uL (3.5-10.8)
[2019-03-17 14:12] LABS: INR 1.12 (0.82-1.09)
[2019-03-17] MEDS ORDERED: Levofloxacin TAB* 500 MG PO ONE (14:43)
[2019-03-17 14:51] LABS: Albumin 3.2 g/dL (3.2-5.2); Albumin/Globulin Ratio 1.1 (1-3); BUN/Creatinine Ratio 32.3 (8-20); C Reactive Protein 3.1 mg/L (<8.01); Calcium 8.4 mg/dL (8.6-10.3); EGFR African American 65.1 (>60); EGFR Non-African American 53.8 (>60); Potassium 4.3 mmol/L (3.5-5.0); Total Bilirubin 0.5 mg/dL (0.2-1.0); Total Protein 6.2 g/dL (6.4-8.9)
[2019-03-17 14:52] LABS: Troponin I 0.03 ng/mL (<0.04)
[2019-03-17 14:58] VITALS: BP 100/55
== END 2019-03-17 16:45 | disposition home or self-care (01) ==
LOC: ED 12:43
DX: J81.1 Chronic pulmonary edema (principal); D64.9 Anemia, unspecified; I11.0 Hypertensive heart disease with heart failure; I50.9 Heart failure, unspecified; I25.10 Atherosclerotic heart disease of native coronary artery without angina pectoris; E78.00 Pure hypercholesterolemia, unspecified; Z86.74 Personal history of sudden cardiac arrest; J44.9 Chronic obstructive pulmonary disease, unspecified; Z95.1 Presence of aortocoronary bypass graft; Z95.2 Presence of prosthetic heart valve; Z87.891 Personal history of nicotine dependence; Z79.899 Other long term (current) drug therapy
CPT/HCPCS: 36415; 71045; 80053; 83605; 83880; 84484; 85025; 85610; 86140; 87040; 93005; 96374; 99284; A9270-GY; J1100